=== PATIENT | female | born 1975 | race Caucasian/White ===

== ENCOUNTER → 2020-08-08 09:42 | Outpatient (CLI) | payer OTHER, SELFPAY ==
--- NOTE | 2020-08-08 12:42 | NEURO_ITS ---
NCS and/or EMG Patient Report Ordering Doctor: Sherri Kerr NP DATE OF SERVICE: 08/08/20 Indication: Right sided neck and upper extremity pain. Symptoms fluctuate in severity. Similar sensory disturbances on the left improved with cervical injections. Evaluate for cervical radiculopathy. Findings: Nerve conduction studies were performed in the right and left upper extremities. The right median motor study recording the abductor pollicis brevis showed a normal amplitude, normal distal latency and normal conduction velocity. The right ulnar motor study recording the abductor digiti minimi showed a normal amplitude, normal distal latency and normal conduction velocity. No conduction block or focal slowing was present across the elbow. The right median sensory response recording digit two showed a normal amplitude, latency and conduction velocity. The right ulnar sensory response recording digit five showed a normal amplitude, latency and conduction velocity. The right radial sensory response recording over the extensor snuff box showed a normal amplitude, latency and conduction velocity. The left median motor study recording the abductor pollicis brevis showed a normal amplitude, normal distal latency and normal conduction velocity. The left ulnar motor study recording the abductor digiti minimi showed a normal amplitude, normal distal latency and normal conduction velocity. No conduction block or focal slowing was present across the elbow. The left median sensory response recording digit two showed a normal amplitude, latency and conduction velocity. The left ulnar sensory response recording digit five showed a normal amplitude, latency and conduction velocity. The left radial sensory response recording over the extensor snuff box showed a normal amplitude, latency and conduction velocity. As routine median motor and sensory studies have a false negative rate of 25%, additional internal comparison studies were done to assess for possible median neuropathy at the wrist. These internal comparison studies (median vs. ulnar palmar mixed; median vs. ulnar sensory recording digit four; median vs. ulnar motor studies to the second lumbrical / interosseous; median vs. radial sensory studies recording digit one; median segmental sensory studies comparing the wrist-palm and palm-digit velocities) increase the electrodiagnostic sensitivity rate to 95%. However, due to statistical issues with multiple tests, it is required that at least two studies are abnormal to reduce the false positive rate to acceptable levels. Right median-ulnar lumbrical / interosseous motor latencies showed a normal median latency compared to the ulnar. Left median- ulnar lumbrical / interosseous motor latencies showed a normal median latency compared to the ulnar. Needle EMG of the right upper extremity muscles was performed. The cervical paraspinal were not sampled due to the patient being on Xarelto. No denervation was seen in any muscle. The triceps demonstrated motor units which were large amplitude, long duration, normal phases and reduced recruitment. The flexor carpi radialis revealed similar motor unit morphology, but to a lesser extent. All other motor unit morphology, activation and recruitment patterns were normal. Needle EMG of the left upper extremity muscles was performed. The cervical paraspinal were not sampled due to the patient being on Xarelto. No denervation was seen in any muscle. All motor unit morphology, activation and recruitment patterns were normal. Impression: This is an abnormal study. There is electrophysiologic evidence of a chronic, right, C6/7 radiculopathy without active features. There is no evidence of radiculopathy in the left upper extremity. There is no evidence of entrapment neuropathy in either upper extremity. Please note: the electrical diagnosis of radiculopathy is made on the basis of excluding peripheral nerve lesions on nerve conduction studies and the needle EMG demonstrating denervation and/or reinnervation in the distribution of one or more nerve roots (i.e., acute and/or chronic axonal loss). Thus, electrodiagno stic studies are insensitive in detecting radiculopathy in the absence of axonal loss (e.g., in the setting of compression resulting in intermittent ischemia or mechanical deformation; or demyelination without axonal loss). Thus, clinical correlation is required in the interpretation of this negative electrodiagnostic study for radiculopathy in the left upper extremity. Stevie Youngblood D.O.
== END ==
PROVIDERS: PCP Internal Medicine; Referring Provider Nurse Practitioner Family; Visit Provider Nurse Practitioner Family
DX: M47.812 Spondylosis without myelopathy or radiculopathy, cervical region (principal); M54.12 Radiculopathy, cervical region
CPT/HCPCS: 95886; 95913

== ENCOUNTER → 2021-01-16 17:26 | Outpatient (CLI) | payer OTHER, SELFPAY ==
--- NOTE | 2021-01-16 17:50 | MRI_ITS ---
STUDY: MRI CERVICAL SPINE WITHOUT CONTRAST REASON FOR EXAM: Female, 45 years old. Right-sided neck pain and radiculopathy TECHNIQUE: Standardized fat and water weighted pulse sequences were obtained in the sagittal and axial planes. COMPARISON: None FINDINGS: Normal foramen magnum and brainstem-cervical cord junction. Normal craniovertebral junction. Normal anterior atlantoaxial articulation. Normal odontoid process. There is straightening of the normal cervical lordosis. Mild stepwise retrolisthesis at C5-6 and C6-7. Normal vertebral bodies and posterior osseous elements. C2-3: Normal endplates. Normal disc height, signal and morphology. Normal central canal and intervertebral neural foramina. C3-4: Normal endplates. Normal disc height, signal and morphology. Normal central canal and intervertebral neural foramina. C4-5: Normal endplates. Normal disc height, signal and morphology. Normal central canal and intervertebral neural foramina. C5-6: Normal endplates. Disc bulge eccentric to the right with mild mass effect on the. Moderate right and mild left neural foraminal stenosis. C6-7: Normal endplates. Disc bulge with central protrusion deforms the ventral cord. No associated cord signal abnormality. Normal intervertebral neural foramina. C7-T1: Normal endplates. Normal disc height, signal and morphology. Normal central canal and intervertebral neural foramina. Normal cervical cord. Normal visualized soft tissue structures. MRI/Spine Cervical (Routine) IMPRESSION: Moderate right and mild left neural foraminal stenosis at C5-6 caused by disc bulge. Disc bulge with central protrusion deforms the ventral cord at C6-7. No abnormal cord signal. Electronically Signed: Robbin Newberry MD at 22:06 EDT Tel , Service support ,
== END ==
PROVIDERS: PCP Internal Medicine; Visit Provider Nurse Practitioner Family
DX: M54.2 Cervicalgia (principal); M47.22 Other spondylosis with radiculopathy, cervical region
CPT/HCPCS: 72141

== ENCOUNTER → 2022-06-17 | Outpatient (CLI) | payer OTHER, SELFPAY ==
--- NOTE | 2022-06-17 09:24 | RAD_ITS ---
INDICATION: Right knee pain, no known injury EXAMINATION/TECHNIQUE: X-RAY - RIGHT XR Knee 3 Views 3 VIEWS COMPARISON: None. FINDINGS: SOFT TISSUES: No soft tissue swelling or gas. No radiopaque foreign body. BONES/JOINTS: No acute fracture or subluxation. Normal alignment. Developing tiny osteophytes along the tibia and patella. Joint spaces do not appear significantly narrowed. No sclerotic or destructive changes observed. RAD/Knee 3 Views IMPRESSION: Slight developing tricompartmental DJD. Electronically Signed: Robbin Newberry MD at 16:49 EDT ,
== END | disposition home or self-care (01) ==
LOC: MTRAD 09:22
PROVIDERS: PCP Internal Medicine; Referring Provider Nurse Practitioner Acute Care; Visit Provider Nurse Practitioner Acute Care
DX: M25.561 Pain in right knee (principal)
CPT/HCPCS: 73562

== ENCOUNTER → 2023-01-19 | Outpatient (CLI) | payer OTHER, SELFPAY ==
--- NOTE | 2023-01-19 09:13 | RAD_ITS ---
STUDY: X-RAY - RIGHT SHOULDER REASON FOR EXAM: Female, 47 years old. Pain radiating to right shoulder. TECHNIQUE: 4 view(s) of the shoulder. COMPARISON: None. FINDINGS: Mild arthrosis of the glenohumeral joint. Mild arthrosis of the AC joint. Normal acromion. Normal humeral head and visualized proximal humerus. Normal soft tissues. Normal visualized pulmonary apex. RAD/Shoulder min 2 Views IMPRESSION: Mild arthrosis of the glenohumeral and acromioclavicular joints. No acute abnormality or erosive changes. Electronically Signed: Cedric Schmidt MD at 11:54 EDT ,
== END | disposition home or self-care (01) ==
LOC: MTRAD 09:11
PROVIDERS: PCP Internal Medicine; Referring Provider Nurse Practitioner Acute Care; Visit Provider Nurse Practitioner Acute Care
DX: M25.511 Pain in right shoulder (principal)
CPT/HCPCS: 73030

== ENCOUNTER → 2024-05-02 | Outpatient (CLI) | payer OTHER, SELFPAY ==
--- NOTE | 2024-05-02 08:48 | RAD_ITS ---
EXAM: XR Lumbosacral Spine, 4 or 5 Views CLINICAL INDICATION: TECHNIQUE: Frontal, lateral and bilateral oblique views of the lumbar spine. COMPARISON: No relevant prior studies available. FINDINGS: VERTEBRAE: Unremarkable. No acute fracture. Normal alignment. SACRUM/COCCYX: Unremarkable as visualized. No acute fracture. DISC SPACES: No acute findings. No significant narrowing. SOFT TISSUES: Unremarkable. RAD/L/S Spine Comp/w Bending Views IMPRESSION: Normal lumbar spine x-rays. Reading Location: [facility]
== END | disposition home or self-care (01) ==
LOC: MTRAD 08:46
PROVIDERS: PCP Internal Medicine; Referring Provider Clinical Nurse Specialist Adult Health; Visit Provider Clinical Nurse Specialist Adult Health
DX: M51.369 Other intervertebral disc degeneration, lumbar region without mention of lumbar back pain or lower extremity pain (principal)
CPT/HCPCS: 72114

== ENCOUNTER → 2024-06-12 | Outpatient (CLI) | payer OTHER, SELFPAY ==
--- NOTE | 2024-06-12 07:16 | MRI_ITS ---
PROCEDURE: SPINE LUMBAR (ROUTINE) (MRISPL), 06/12/2024 REASON FOR EXAM: LUMBAR DEGNERATIVE DISC DISEASE TECHNIQUE: Multisequence multiplanar MR of the lumbar spine was performed without IV contrast. COMPARISON: 05/02/2024 FINDINGS: Vertebral body heights are preserved. No suspicious marrow signal abnormality. No significant malalignment. Conus medullaris terminates normally at the L1-L2 disc level. Unremarkable appearance of the cauda equina. T12-L1: No significant foraminal or spinal canal stenosis. L1-2: No significant foraminal or spinal canal stenosis. L2-3: No significant foraminal or spinal canal stenosis. L3-4: Diffuse disc bulging with mild disc desiccation. Superimposed small posterior central disc protrusion within minimal inferior migration. Mild facet arthropathy. Mild spinal canal stenosis. Very mild bilateral foraminal stenoses. L4-5: Diffuse disc bulging with disc desiccation and superimposed small posterior central and right subarticular disc protrusion. Qrvfnvge-ab-[id number] focal spinal canal stenosis, however with incomplete effacement of CSF. Effacement of the right lateral recess with narrowing of the left lateral recess. Mild facet arthropathy. Mild lvopf-xaiowzt-oxxu-left foraminal stenosis. L5-S1: Facet arthropathy. Minimal disc bulging without significant focal spinal canal or foraminal stenosis. Other: Cervical spondylosis on the mold parter, not well evaluated. Presumed vertebral body hemangioma within the T10 vertebral body in the absence of known malignancy. Left maxillary paranasal sinus disease. 2.2 cm left adnexal presumed physiologic cyst/dominant follicle. MRI/Spine Lumbar (Routine) IMPRESSION: 1. Multilevel spondylosis as detailed. No high-grade foraminal stenosis, howev er there is effacement of the gynri-kpvaiuj-mffg-left lateral recesses at L4-L5 related to disc bulging and s uperimposed disc protrusion. Spinal canal stenoses up to [id number]-[id number] at that level. 2. Additional description as above. Reading Location: [facility]
== END | disposition home or self-care (01) ==
PROVIDERS: PCP Internal Medicine; Referring Provider Clinical Nurse Specialist Adult Health; Visit Provider Clinical Nurse Specialist Adult Health
DX: M51.369 Other intervertebral disc degeneration, lumbar region without mention of lumbar back pain or lower extremity pain (principal)
CPT/HCPCS: 72148

== ENCOUNTER → 2024-11-03 | Outpatient (CLI) | payer OTHER, SELFPAY ==
[2024-11-03 16:34] LABS: Synovial Fld Mononuclear WBC # 0.100 10^3/ul; Synovial Fld Mononuclear WBC % 88.5 %; Synovial Fld Polynuclear WBC # 0.013 10^3/uL; Synovial Fld Polynuclear WBC % 11.5 %; Total Cell Count Synovial Fld 0.1440 10^3/uL (0.000-0.000); WBC / Synovial Fluid 0.1130 10^3/uL (0.000-0.002)
[2024-11-03 16:40] LABS: RBC /Synovial Fluid 0.005 10^6/uL (0)
[2024-11-03 16:47] LABS: AUTO B FLUID DILUENT BKGD CT WBC <0.1 RBC <0.01 (W<.1,R<.01)
[2024-11-03 16:48] LABS: Appearance /Synovial Fluid Cloudy (CLEAR); Color / Synovial Fluid Yellow (Pale Yellow); Source / Synovial Fluid LEFT KNEE; Source- Body Fluid SYNOVIAL
[2024-11-03 16:55] LABS: Body Fluid QC Type(s) BF2Q, BF3Q
[2024-11-03 20:04] LABS: Monocyte /Synovial Fluid 84 %
[2024-11-03 20:18] LABS: CRYSTALS, BODY FLUID NO CRYSTALS SEEN
== END | disposition home or self-care (01) ==
LOC: LABSPEC 15:25
PROVIDERS: PCP Internal Medicine; Referring Provider Internal Medicine Rheumatology; Visit Provider Internal Medicine Rheumatology
DX: M46.90 Unspecified inflammatory spondylopathy, site unspecified (principal)
CPT/HCPCS: 87070; 87075; 87205; 89050; 89051; 89060